=== PATIENT | male | born 1985 | race Two or more races ===

== ENCOUNTER 2018-10-13 21:01 | Emergency (ER) | payer OTHER ==
[~2018-10-13] VITALS: Ht 170.2 cm; Wt 73.0 kg
--- NOTE | 2018-10-13 21:10 | NUR ---
PT BIB [facility] WITH A C/O ETOH. PER PT'S , PT HAS BEEN ON A DRINKING BINGE ALL WEEK. PT HAS BEEN DRINKING 1.5 BOTTLES OF TEQUILLA DAILY. PT'S CAME HOME FROM WORK AND FOUND THE PT DRUNK AND STAGGERING. PT STATED THAT HE WANTED TO LIE DOWN ON THE COUCH AND PASSED OUT ON THE FLOOR BEFORE HE COULD GET THERE. PT'S TRIED TO CATCH HIM, BUT WAS NOT ABLE TO. PT'S STATED THAT SHE DRAGGED HIM TO THE COUCH BY HIS ARMS AND GOT HIM ON THE COUCH. AT THAT TIME, THE PT'S NOTICED THAT THERE WAS BUBBLES/FOAM LIKE SPIT COMING OUT OF THE PT'S MOUTH. PT WAS KEEPING HIS MOUTH CLOSED, BUT (ACCORDING TO THE PT'S ) DID NOT APPEAR TO BE HAVING A SEIZURE. PT IS SLEEPY, BUT IS A&O X3. PT KNOWS: TIME, PLACE, AND PERSON. PT WAS PLACED ON THE MONITOR AND COTNINUOUS PULSE OX. PT'S O2 SAT WAS 92% ON RA AND WAS PLACED ON 2L VIA NC. PT'S O2 SAT INCREASED TO 96%. PT IS EASILY AROUSED AND ANSWERS QUESTIONS CORRECTLY.
--- NOTE | 2018-10-13 21:11 | NUR ---
Amanda MCLAUGHLIN PA-C IS AT THE BEDSIDE EVALUATING THE PT.
[2018-10-13] MEDS ORDERED: IV NS 0.9% 1,000 ML BAG IV ONE ×2 (21:30→23:30)
--- NOTE | 2018-10-13 21:30 | NUR ---
PT'S MOTHER IS AT THE BEDSIDE.
[2018-10-13 21:34] LABS: BASOPHILS # (AUTO) 0.1 /CMM (0.0-0.2); EOSINOPHILS % (AUTO) 1.5 % (0.0-6.0); HEMATOCRIT 50 % (39-51); HEMOGLOBIN 16.6 g/dL (13.5-17.5); LYMPHOCYTES # (AUTO) 2.3 /CMM (0.8-4.8); LYMPHOCYTES % (AUTO) 46.3 % (20.0-44.0); MEAN CORPUSCULAR HGB CONC 33 g/dl (31.0-36.0); MEAN CORPUSCULAR VOLUME 91 fL (80-96); MONOCYTES # (AUTO) 0.3 /CMM (0.1-1.30); MONOCYTES % (AUTO) 5.2 % (2.0-12.0); NEUTROPHILS # (AUTO) 2.3 /CMM (1.8-8.9); PLATELET COUNT (AUTO) 251 /CMM (150-450); RED BLOOD CELL COUNT(AUTO) 5.51 MIL/uL (4.5-6.0)
[2018-10-13 21:41] LABS: CALCIUM, SERUM 8.5 mg/dL (8.5-10.1); CARBON DIOXIDE 27 mmol/L (21-32); CHLORIDE 104 mmol/L (98-107); CREATININE 0.8 mg/dL (0.6-1.3); GLUCOSE 106 mg/dL (74-106); POTASSIUM 3.5 mmol/L (3.5-5.1); SODIUM SERUM 144 mmol/L (136-145); UREA NITROGEN, BLOOD 5 mg/dL (7-18)
[2018-10-13 21:48] LABS: ALANINE AMINOTRANSFERASE 49 U/L (12-78); ALBUMIN 4.3 g/dL (3.4-5.0); ALCOHOL, BLOOD 512 mg/dL (0-0); ALKALINE PHOSPHATASE 90 U/L (46-116); ASPARTATE AMINOTRANSFERASE 36 U/L (15-37); BILIRUBIN,DIRECT 0.1 mg/dL (0.0-0.2); BILIRUBIN,TOTAL 0.6 mg/dL (0.2-1.0); TOTAL PROTEIN, SERUM 7.6 g/dL (6.4-8.2)
[2018-10-13 21:49] LABS: ACETAMINOPHEN < 5 ug/ml (10-30); SALICYLATE 1.4 mg/dL (2.8-20.0)
--- NOTE | 2018-10-13 23:00 | NUR ---
PT'S AND MOTHER ARE AT THE BEDSIDE. PT IS INTERMITTENTLY WAKING UP. PT STATED THAT HE WAS NOT ABLE TO GIVE A URINE SAMPLE AT THIS TIME.
[2018-10-13] MEDS ORDERED: MULTIVITAMINS,THERAGRAN 1 UDTAB TABLET PO STA (23:15)
[2018-10-13] MEDS ORDERED: THIAMINE HCL 100 MG TABLET ONE (23:24)
[2018-10-13] MEDS ORDERED: FOLIC ACID 1 MG TABLET ONE (23:24)
--- NOTE | 2018-10-13 23:25 | NUR ---
PT REC'D A TUNA SANDWICH, JELLO, YOGURT, AND JUICE. PT IS TOLERATING PO WELL. PT'S AND MOTHER ARE AT THE BEDSIDE. PT IS ON THE MONITOR AND CONTINUOUS PULSE OX. WILL COTINUE TO MONITOR THE PT.
[2018-10-13] MEDS ORDERED: FOLIC ACID 1 MG TABLET PO ONE (23:30)
[2018-10-13] MEDS ORDERED: THIAMINE HCL 100 MG TABLET PO ONE (23:30)
--- NOTE | 2018-10-13 23:36 | NUR ---
MULTIVITAMIN NOT AVIALABLE IN PYXIS AND NOT IN THE NIGHT LOCKER. B WILBERT MCLAUGHLIN NOTIFIED AND MEDICATION CANCELLED.
--- NOTE | 2018-10-13 23:42 | NUR ---
Note undone in EDM - 10/13/18 at 2347 by SREEKANTH IV removed. Catheter intact and site benign. Pressure and 4x4 applied to site. No bleeding noted. Patient discharged to home in stable condition. Written and verbal after care instructions given. Patient verbalizes understanding of instruction AND RX. PT AMBULATED OUT WITH A STEADY GAIT. VSS.
[2018-10-13 23:43] VITALS: BP 108/77
--- NOTE | 2018-10-14 00:44 | NUR ---
PT ROLLED OVER AND ACCIDENTALLY PULLED OUT HIS IV. Catheter intact and site benign. Pressure and 4x4 applied to site. No bleeding noted.
--- NOTE | 2018-10-14 00:45 | NUR ---
PT REC'D A WARM BLANKET AND PT'S MOTHER IS AT THE BEDSIDE.
--- NOTE | 2018-10-14 01:56 | NUR ---
PT AMBULATED WITH A STEADY GAIT. NO ATAXIA NOTED. PT'S MOTHER IS DRIVING PT HOME. PT AMBULATED TO THE BATHROOM WITH A STEADY GAIT. PT TO F/U WITH MACHELLE HUDSON, PER PT'S MOTHER. VSS. DR ADHIKARI OK'D PT TO BE D/C'D HOME. Patient discharged to home in stable condition. Written and verbal after care instructions given. Patient verbalizes understanding of instruction.
== END 2018-10-14 01:59 | disposition home or self-care (01) ==
LOC: ER 21:03
DX: F10.229 Alcohol dependence with intoxication, unspecified (principal); R11.10 Vomiting, unspecified; Y90.8 Blood alcohol level of 240 mg/100 ml or more; Z87.19 Personal history of other diseases of the digestive system
CPT/HCPCS: 36415; 80048; 80076; 80307; 80329; 83690; 85025; 96360; 96361; 99283; G0480; J7030 ×2